=== PATIENT | female | born 1980 | race Caucasian/White ===

== ENCOUNTER 2016-07-13 19:26 | Emergency (ER) | payer OTHER ==
[2016-07-13 21:30] VITALS: BP 132/74
--- NOTE | 2016-07-13 22:04 | UC ---
Complaint Female HPI - HPI Summary HPI Summary: Patient has been having sharp pains in the left flank. She is now having pain in the lower abdomen and the sharp pains come and go. - History Of Current Complaint Chief Complaint: UCGU Stated Complaint: BLADDER & BACK PAIN Time Seen by Provider: 07/13/16 21:09 Hx Obtained From: Patient Hx Last Menstrual Period: 07/11/16 ?: No Onset/Duration: Sudden Onset, Lasting Hours Timing: Intermittent Severity Initially: Moderate Severity Currently: Moderate Character: Sharp, Cramping Aggravating Factor(s): Nothing Alleviating Factor(s): Nothing Associated Signs And Symptoms: Positive: Back Pain - Risk Factors Ectopic Risk Factor: Negative - Allergies/Home Medications Allergies/Adverse Reactions: Allergies Allergy/AdvReac Type Severity Reaction Status Date / Time No Known Allergies Allergy Verified 07/13/16 21:29 Home Medications: Home Medications Cholecalciferol TAB* [Vitamin D TAB*] 1,000 unit PO DAILY 07/13/16 [History Confirmed 07/13/16] Fexofenadine (NF) [Aditi (NF)] 60 mg PO 07/13/16 [History] Metoclopramide TAB* [Reglan TAB*] 10 mg PO Q6H PRN 07/13/16 [History Confirmed 07/13/16] PMH/Surg Hx/FS Hx/Imm Hx Previously Healthy: Yes Endocrine History Of: Denies: Diabetes, Thyroid Disease Cardiovascular History Of: Denies: Cardiac Disorders, Hypertension Respiratory History Of: Denies: COPD, Asthma GI/ History Of: Denies: Ulcer - Surgical History Surgical History: Yes Surgery Procedure, Year, and Place: X2 - Family History Known Family History: Negative: Cardiac Disease, Hypertension - Social History Alcohol Use: None Substance Use Type: None Smoking Status (MU): Never Smoked Tobacco Review of Systems Constitutional: Negative Skin: Negative Eyes: Negative ENT: Negative Respiratory: Negative Cardiovascular: Negative Gastrointestinal: Abdominal Pain Genitourinary: Negative Motor: Negative Neurovascular: Negative Musculoskeletal: Myalgia - left flank pain Neurological: Negative Psychological: Negative All Other Systems Reviewed And Are Negative: Yes Physical Exam Triage Information Reviewed: Yes Appearance: Well-Appearing, Well-Nourished, Pain Distress Vital Signs: Initial Vital Signs Temp 99.1 F 07/13/16 21:24 Pulse 85 07/13/16 21:24 Resp 18 04/04/17 21:24 BP 132/74 07/13/16 21:24 Pulse Ox 99 07/13/16 21:24 Vital Signs Reviewed: Yes Eye Exam: Normal Eyes: Positive: Conjunctiva Clear ENT Exam: Normal ENT: Positive: Hearing grossly normal, Pharynx normal, TMs normal Dental Exam: Normal Neck exam: Normal Neck: Positive: Supple, Nontender, No Lymphadenopathy Respiratory Exam: Normal Respiratory: Positive: Chest non-tender, Lungs clear, Normal breath sounds Cardiovascular Exam: Normal Cardiovascular: Positive: RRR, No Murmur, Pulses Normal Abdomen Description: Positive: Nontender, No Organomegaly, Soft, CVA Tenderness (L) Bowel Sounds: Positive: Present Musculoskeletal Exam: Normal Musculoskeletal: Positive: Strength Intact, ROM Intact, No Edema Neurological Exam: Normal Neurological: Positive: Alert, Muscle Tone Normal Psychological Exam: Normal Skin Exam: Normal Complaint Female Dx - Course Course Of Treatment: hx obtained, exam performed,meds reviewed, CT obtained to R /o kidney stone, it is positive for 7 mm kidney stone in right ureter, mild right hydronephrosis. dispensed pain medication and zofran, advised to return to ER if she developes increased pain or fever. or decreased urine output. Call her urologist in the morning - Differential Dx/Diagnosis Differential Diagnosis/HQI/PQRI: Ovarian Cyst, Renal Colic, Sexually Transmitted Disease, Ureteral Stone, Urinary Tract Infection Provider Diagnoses: renal calculi. Right kidney Hydronephrosis. hematuria Discharge - Discharge Plan Condition: Stable Disposition: HOME Patient Education Materials: Kidney Stones (ED) Referrals: Trisha William MD [Primary Care Provider] - Shola Rodríguez MD,Arvin Rose [Medical Doctor] - Additional Instructions: 1. call urologist in the morning for follow up. 2. report to ER if pain increases, you develop a fever or your urine output diminshes. 3. Take the dispensed medication as needed per instructions
--- NOTE | 2016-07-13 22:21 | RAD ---
CLINICAL HISTORY: Left flank and bladder pain x2 days. COMPARISON: None TECHNIQUE: Noncontrast CT examination of the abdomen and pelvis from the lung bases through the initial tuberosities. FINDINGS: VISUALIZED LUNG BASES: The visualized lung bases are grossly clear. There is no pleural effusion. ABDOMEN AND PELVIS: Evaluation of the solid organs and vasculature is limited without intravenous contrast. The liver, spleen, pancreas and adrenal glands are grossly normal in appearance. The gallbladder is normal. The right kidney is normal in appearance without focal mass, calcification or signs of hydronephrosis. There is mild left-sided hydronephrosis. A proximal right ureter there is an elongated calcification measuring up to 7 mm in length (coronal image 55). More distally the ureters are normal. There are no calcifications seen in the urinary bladder. The small and large bowel are not distended.The patient's partially gas-filled appendix is identified in the right lower quadrant (axial image 108). There is no gross retroperitoneal or mesenteric lymphadenopathy. The pelvic viscera is normal in appearance. There is incidentally noted a tampon in the vagina. The abdominal aorta and iliac arteries are normal in course and diameter. There are no sinister bone lesions. IMPRESSION: Mild left-sided hydronephrosis without identification of an elongate 7 mm length calculus in the proximal left ureter.
[2016-07-13] MEDS ORDERED: HYDROcodone/ACETAMIN 5-325 MG* 1 TAB PO ONE (22:41)
[2016-07-13] MEDS ORDERED: Ondansetron ODT TAB* 4 MG PO ONE ×2 (22:41→22:42)
== END 2016-07-13 22:59 | disposition home or self-care (01) ==
LOC: UCEAST 19:26
DX: N13.2 Hydronephrosis with renal and ureteral calculous obstruction (principal); R31.9 Hematuria, unspecified
CPT/HCPCS: 74176; 81003; 99212; G0463